=== PATIENT | male | born 1975 | race Two or more races ===

== ENCOUNTER 2024-01-14 16:20 | Inpatient (IN) | payer OTHER ==
[~2024-01-14] VITALS: Ht 185.4 cm; Wt 89.3 kg
[2024-01-14] MEDS: KETOROLAC TROMETHAMINE 30 MG/ML VIAL IVP ONE (18:45)
[2024-01-14] MEDS: ONDANSETRON HCL 4 MG/2 ML VIAL IVP ONE (18:45)
[2024-01-14] MEDS: SODIUM CHLORIDE 0.9% 1,000 ML IV ONE ×2 (18:45→21:58)
[2024-01-14 19:48] LABS: BASOPHILS % (AUTO) 0.5 % (0.0-2.0); EOSINOPHILS % (AUTO) 1.6 % (1.0-6.0); HEMATOCRIT 38.2 % (41-53); HEMOGLOBIN 12.6 g/dL (13.5-17.5); LYMPHOCYTES % (AUTO) 14.9 % (22.0-44.0); MEAN CORPUSCULAR HEMOGLOBIN 27.9 pg (26.0-34.0); MEAN CORPUSCULAR HGB CONC 33.1 G/dL (31.0-37.0); MEAN CORPUSCULAR VOLUME 84 fL (80-100); MONOCYTES # (AUTO) 1.2 K/uL (0.1-1.0); NEUTROPHILS # (AUTO) 10.1 K/uL (1.8-7.7); PLATELET COUNT (AUTO) 283 K/uL (150-450); RED BLOOD CELL COUNT(AUTO) 4.54 MIL/uL (4.50-5.90); RED CELL DISTRIBUTION WIDTH 13.9 % (11.5-14.5); WHITE BLOOD COUNT (AUTO) 13.6 K/uL (4.5-11.0)
[2024-01-14 19:56] LABS: TROPONIN I-HIGH SENSITIVITY Less Than 4 ng/L (<76)
[2024-01-14 19:58] LABS: B-TYPE NATRIURETIC PEPTIDE 22 pg/mL (0-100); ERYTHROCYTE SEDIMENTATION RATE 25 MM/HR (0-15)
[2024-01-14 19:59] LABS: ANION GAP 6 mmol/L (8-16); CALCIUM, TOTAL 9.6 mg/dL (8.8-10.5); CARBON DIOXIDE 31 mmol/L (22-29); CHLORIDE 101 mmol/L (98-107); CREATININE 0.89 mg/dL (0.60-1.30); GLOMERULAR FILTR. RATE CALC > 60 mL/min (>60); GLUCOSE,RANDOM 95 mg/dL (70-110); POTASSIUM 4.3 mmol/L (3.5-5.1); SODIUM SERUM 138 mmol/L (136-145); UREA NITROGEN, BLOOD 15 mg/dL (7-18)
[2024-01-14 21:47] LABS: LACTIC ACID 0.8 mmol/L (0.4-2.0)
[2024-01-14] MEDS: DOCUSATE SODIUM 100 MG CAPSULE PO SCH (21:57)
[2024-01-14] MEDS: IOHEXOL 9 MG/ML 500 ML BOTTLE PO ONE (21:57)
[2024-01-14] MEDS ORDERED: SODIUM CHLORIDE 0.9% 100 ML ONE (22:19)
[2024-01-14] MEDS ORDERED: IOHEXOL 350 MG/ML 100 ML VIAL ONE (22:19)
[2024-01-15 00:12] VITALS: BP 103/63; PULSE 70; RESP 19; TEMP 98.1
[2024-01-15] MEDS: HYDROmorphone HCL 2 MG/ML SYRINGE IVP ONE (00:48)
[2024-01-15] MEDS: CLINDAMYCIN 600 MG/D5% WATER 50 ML IV ONE (01:05)
[2024-01-15] MEDS: HEPARIN SODIUM,PORCINE 5,000 UNITS/ML VIAL SQ SCH (01:09)
[2024-01-15] MEDS: PIPERACILLIN/TAZO 3.375 GM/D5W 50 ML IV ONE (02:13)
[2024-01-15 04:26] VITALS: BP 118/67; PULSE 67; RESP 18; TEMP 97.7
[2024-01-15 05:48] LABS: APPEARANCE,URINE CLEAR (CLEAR); BILIRUBIN,URINE NEGATIVE (NEGATIVE); COLOR,URINE YELLOW (YELLOW); GLUCOSE, URINE (UA) NEGATIVE (NEGATIVE); LEUKOCYTE ESTERASE ,URINE NEGATIVE (NEGATIVE); NITRATE,URINE NEGATIVE (NEGATIVE); OCCULT BLOOD,URINE NEGATIVE (NEGATIVE); PH,URINE 6.5 (5.0-8.0); PH,URINE DRUG SCREEN 6.5 (5.0-8.0); PROTEIN,URINE TRACE mg/dL (NEGATIVE); UROBILINOGEN,URINE <=1.0 mg/dL (<=1.0)
[2024-01-15 05:54] LABS: ALCOHOL, URINE DRUG SCREEN NEGATIVE (NEGATIVE); AMPHET/METH SCREEN,URINE POSITIVE (NEGATIVE); BARBITURATE SCREEN, URINE NEGATIVE (NEGATIVE); BENZODIAZEPINES SCREEN,URINE NEGATIVE (NEGATIVE); CANNABINOID SCREEN,URINE NEGATIVE (NEGATIVE); COCAINE SCREEN,URINE NEGATIVE (NEGATIVE); METHADONE SCREEN, URINE NEGATIVE (NEGATIVE); OPIATE SCREEN,URINE POSITIVE (NEGATIVE); PHENCYCLIDINE SCREEN,URINE NEGATIVE (NEGATIVE)
[2024-01-15 05:55] LABS: RBC,URINE None Seen /HPF (0-2)
[2024-01-15 05:56] LABS: BACTERIA,URINE None Seen /HPF (None Seen); SQUAMOUS EPITHELIAL CELL,UR None Seen /LPF (None Seen); WBC,URINE None Seen /HPF (0-5)
[2024-01-15] MEDS: MORPHINE SULFATE 2 MG/ML SYRINGE IVP PRN (07:49)
[2024-01-15 08:27] VITALS: BP 113/71; PULSE 7; PULSE 76; RESP 20; TEMP 98.1
[2024-01-15] MEDS ORDERED: FAMOTIDINE 20 MG TABLET PO SCH (09:00)
[2024-01-15] MEDS: PANTOPRAZOLE SODIUM 40 MG/VIAL IVP SCH (09:05)
[2024-01-15] MEDS: SODIUM CHLORIDE 0.9% 1,000 ML IV ONE (09:11)
[2024-01-15] MEDS: PIPERACILLIN/TAZO 3.375 GM/D5W 50 ML IV SCH (09:16)
[2024-01-15] MEDS ORDERED: RINGERS SOLUTION,LACTATED 1,000 ML IV ONE (09:29)
[2024-01-15] MEDS: ETHYL ALCOHOL 62% ANTISEPTIC NASAL SANITIZER 0.6 ML AMPUL NASAL ONE (09:36)
[2024-01-15] MEDS: CHLORHEXIDINE GLUCONATE 2% TOWELETTE [2'S/6'S] TP ONE (09:36)
[2024-01-15] MEDS ORDERED: SODIUM CL IRRIG SOLN BAG 0 ML IRRIG ONE (11:02)
[2024-01-15] MEDS: RINGERS SOLUTION,LACTATED 1,000 ML IV ONE (11:15)
[2024-01-15] MEDS ORDERED: MetroNIDAZOLE 500 MG/NACL 100 ML IV ONE (11:57)
[2024-01-15] MEDS ORDERED: MIDAZOLAM HCL 2 MG/2 ML VIAL IVP ONE (12:00)
[2024-01-15] MEDS ORDERED: DEXAMETHASONE SOD PHOS 4 MG/ML VIAL IVP ONE (12:00)
[2024-01-15] MEDS ORDERED: MORPHINE SULFATE/PF 0.5 MG/ML 10 ML AMP IVP ONE (12:00)
[2024-01-15] MEDS ORDERED: ACETAMINOPHEN/ISO-OSM 1000 MG/100 ML BOTTLE IV ONE (12:00)
[2024-01-15] MEDS ORDERED: LIDOCAINE/PF 2% 5 ML VIAL SQ ONE (12:00)
[2024-01-15] MEDS ORDERED: KETOROLAC TROMETHAMINE 60 MG/2 ML VIAL IM ONE (12:00)
[2024-01-15] MEDS ORDERED: CeFAZolin SODIUM 1 GM VIAL IVP ONE (12:00)
[2024-01-15] MEDS ORDERED: FentaNYL CITRATE PF 100 MCG/2 ML VIAL IVP ONE (12:00)
[2024-01-15] MEDS ORDERED: HYDROmorphone HCL 2 MG/ML SYRINGE IVP PRN (12:15)
[2024-01-15] MEDS ORDERED: FentaNYL CITRATE PF 100 MCG/2 ML VIAL IVP PRN (12:15)
[2024-01-15] MEDS ORDERED: MEPERIDINE-PF 25 MG/ML VIAL IVP PRN (12:15)
[2024-01-15] MEDS: BUPIVACAINE 0.25%/EPI 1:200,000/PF 30 ML VIAL ONE (13:05)
[2024-01-15] MEDS: OxyCODONE HCL/ACETAMINOPHEN 5-325 MG TABLET PO PRN (15:35)
[2024-01-15] MEDS ORDERED: BUPIVACAINE 0.25%/EPI 1:200,000/PF 30 ML VIAL ONE (15:52)
[2024-01-15 20:11] VITALS: BP 95/61; PULSE 70; RESP 20; TEMP 97.5
[2024-01-15] MEDS: OXYGEN THERAPY IH SCH (20:51)
[2024-01-16 05:09] VITALS: BP 95/59; PULSE 45; RESP 18; TEMP 97.5
[2024-01-16 07:13] LABS: EOSINOPHILS % (AUTO) 0 % (1.0-6.0); HEMATOCRIT 38.8 % (41-53); HEMOGLOBIN 12.7 g/dL (13.5-17.5); LYMPHOCYTES # (AUTO) 0.9 K/uL (1.0-4.8); LYMPHOCYTES % (AUTO) 3.4 % (22.0-44.0); MEAN CORPUSCULAR HEMOGLOBIN 27.6 pg (26.0-34.0); MEAN CORPUSCULAR HGB CONC 32.8 G/dL (31.0-37.0); MEAN CORPUSCULAR VOLUME 84 fL (80-100); MONOCYTES # (AUTO) 0.6 K/uL (0.1-1.0); MONOCYTES % (AUTO) 2.1 % (2.0-9.0); NEUTROPHILS # (AUTO) 25.4 K/uL (1.8-7.7); PLATELET COUNT (AUTO) 303 K/uL (150-450); RED BLOOD CELL COUNT(AUTO) 4.62 MIL/uL (4.50-5.90); RED CELL DISTRIBUTION WIDTH 13.7 % (11.5-14.5); WHITE BLOOD COUNT (AUTO) 26.9 K/uL (4.5-11.0)
[2024-01-16 07:14] LABS: NEUTROPHILS % (AUTO) 94.5 % (40.0-70.0)
[2024-01-16 07:18] LABS: ANION GAP 10 mmol/L (8-16); CALCIUM, TOTAL 9.7 mg/dL (8.8-10.5); CARBON DIOXIDE 25 mmol/L (22-29); CHLORIDE 100 mmol/L (98-107); CREATININE 0.82 mg/dL (0.60-1.30); GLOMERULAR FILTR. RATE CALC > 60 mL/min (>60); GLUCOSE,RANDOM 150 mg/dL (70-110); POTASSIUM 4.4 mmol/L (3.5-5.1); SODIUM SERUM 135 mmol/L (136-145); UREA NITROGEN, BLOOD 21 mg/dL (7-18)
[2024-01-16 08:11] LABS: RBC MORPHOLOGY COMMENT NORMAL RBC MORPH
[2024-01-16 09:14] VITALS: BP 101/68; PULSE 42; RESP 18; TEMP 97.8
[2024-01-16 20:21] VITALS: BP 105/60; PULSE 51; RESP 19; TEMP 98.2
[2024-01-17 05:01] VITALS: BP 123/69; PULSE 52; RESP 18; TEMP 97.8
[2024-01-17 06:40] LABS: BASOPHILS % (AUTO) 0.5 % (0.0-2.0); EOSINOPHILS % (AUTO) 0.6 % (1.0-6.0); HEMATOCRIT 38.6 % (41-53); HEMOGLOBIN 12.7 g/dL (13.5-17.5); LYMPHOCYTES # (AUTO) 2.5 K/uL (1.0-4.8); LYMPHOCYTES % (AUTO) 16.9 % (22.0-44.0); MEAN CORPUSCULAR HEMOGLOBIN 27.9 pg (26.0-34.0); MEAN CORPUSCULAR HGB CONC 32.8 G/dL (31.0-37.0); MEAN CORPUSCULAR VOLUME 85 fL (80-100); MONOCYTES # (AUTO) 0.7 K/uL (0.1-1.0); NEUTROPHILS # (AUTO) 11.2 K/uL (1.8-7.7); PLATELET COUNT (AUTO) 250 K/uL (150-450); RED BLOOD CELL COUNT(AUTO) 4.54 MIL/uL (4.50-5.90); WHITE BLOOD COUNT (AUTO) 14.5 K/uL (4.5-11.0)
[2024-01-17 07:01] LABS: ANION GAP 7 mmol/L (8-16); CARBON DIOXIDE 29 mmol/L (22-29); CHLORIDE 105 mmol/L (98-107); CREATININE 0.79 mg/dL (0.60-1.30); GLOMERULAR FILTR. RATE CALC > 60 mL/min (>60); GLUCOSE,RANDOM 87 mg/dL (70-110); POTASSIUM 4.4 mmol/L (3.5-5.1); SODIUM SERUM 141 mmol/L (136-145); UREA NITROGEN, BLOOD 20 mg/dL (7-18)
[2024-01-17 08:24] VITALS: BP 102/59; PULSE 51; RESP 19; TEMP 97.7
[2024-01-17] MEDS ORDERED: BISACODYL 10 MG RECTAL RECTAL SUPPOSITORY PR SCH (13:30)
[2024-01-17] MEDS ORDERED: BISACODYL 10 MG RECTAL RECTAL SUPPOSITORY PR PRN (13:30)
[2024-01-17] MEDS: SODIUM PHOSPHATE,MONO-DIBASIC 133 ML ENEMA PR ONE (15:27)
[2024-01-17 19:26] VITALS: BP 116/74; PULSE 64; RESP 18; TEMP 98.6
[2024-01-17] MEDS: ZOLPIDEM TARTRATE 5 MG TABLET PO PRN (20:34)
[2024-01-17] MEDS: LIDOCAINE 5% TRANSDERMAL PATCH TD ONE (23:46)
[2024-01-18 03:30] VITALS: BP 102/58; PULSE 79; RESP 18; TEMP 98.4
[2024-01-18] MEDS: POLYETHYLENE GLYCOL 3350 17 GM PACKET PO SCH (07:55)
[2024-01-18 08:00] VITALS: BP 107/71; PULSE 59; RESP 18; TEMP 98.6
[2024-01-18] MEDS: MAGNESIUM HYDROXIDE SUSPENSION 30 ML UDCUP PO ONE (11:02)
[2024-01-18] MEDS: LIDOCAINE 5% TRANSDERMAL PATCH TD SCH (11:03)
[2024-01-18] MEDS ORDERED: SODIUM CHLORIDE 0.9% 500 ML IV ONE (16:34)
[2024-01-18 19:40] VITALS: BP 107/62; PULSE 54; RESP 18; TEMP 98
[2024-01-18] MEDS: LIDOCAINE 3% CREAM 28 GM TUBE TP SCH (21:00)
[2024-01-18] MEDS: -LIDODERM PATCH NOTE- MISC SCH (21:02)
[2024-01-19 06:57] LABS: HEMATOCRIT 37.8 % (41-53); HEMOGLOBIN 13.3 g/dL (13.5-17.5); MEAN CORPUSCULAR HEMOGLOBIN 29.6 pg (26.0-34.0); MEAN CORPUSCULAR HGB CONC 35.1 G/dL (31.0-37.0); MEAN CORPUSCULAR VOLUME 85 fL (80-100); RED BLOOD CELL COUNT(AUTO) 4.47 MIL/uL (4.50-5.90); RED CELL DISTRIBUTION WIDTH 13.5 % (11.5-14.5); WHITE BLOOD COUNT (AUTO) 11.6 K/uL (4.5-11.0)
[2024-01-19 07:08] LABS: ANION GAP 7 mmol/L (8-16); CALCIUM, TOTAL 9.8 mg/dL (8.8-10.5); CARBON DIOXIDE 27 mmol/L (22-29); CHLORIDE 101 mmol/L (98-107); CREATININE 0.69 mg/dL (0.60-1.30); GLOMERULAR FILTR. RATE CALC > 60 mL/min (>60); GLUCOSE,RANDOM 88 mg/dL (70-110); POTASSIUM 4.4 mmol/L (3.5-5.1); SODIUM SERUM 135 mmol/L (136-145); UREA NITROGEN, BLOOD 18 mg/dL (7-18)
[2024-01-19] MEDS: ONDANSETRON HCL 4 MG/2 ML VIAL IVP PRN (08:04)
[2024-01-19 08:34] VITALS: BP 107/66; PULSE 54; RESP 17; TEMP 97.9
[2024-01-19 08:50] LABS: BAND NEUTROPHILS % (MANUAL) 0 % (0-5); PLATELET COUNT (AUTO) 361 K/uL (150-450)
[2024-01-19 08:52] LABS: EOSINOPHILS % (MANUAL) 1 % (1-6); LYMPHOCYTES % (MANUAL) 27 % (22-44); MONOCYTES % (MANUAL) 9 % (2-9); SEGMENTED NEUTROPHILS % 63 % (40-70); TOTAL CELLS COUNTED 100
[2024-01-19 08:53] LABS: RBC MORPHOLOGY COMMENT NORMAL RBC MORPH
[2024-01-19] MEDS: LEVOFLOXACIN 500 MG TABLET PO SCH (09:31)
[2024-01-19] MEDS: ACETAMINOPHEN 325 MG TABLET PO PRN (09:31)
[2024-01-19] MEDS ORDERED: LEVO-72 PO (10:49)
[2024-01-19] MEDS ORDERED: ACET-2247 PO (10:53)
== END 2024-01-19 14:47 | DRG 398 ==
LOC: EMS 16:23 → EDH 20:50 → 6S 23:55
PROVIDERS: ADMIT Internal Medicine; ATTEND Internal Medicine
PROC: 0DTJ4ZZ Resection of Appendix, Percutaneous Endoscopic Approach (ICD-10-PCS; principal; 2024-01-15 11:30)
DX: K35.80 Unspecified acute appendicitis (principal); F15.23 Other stimulant dependence with withdrawal; R65.10 Systemic inflammatory response syndrome (SIRS) of non-infectious origin without acute organ dysfunction; K59.39 Other megacolon; M54.50 Low back pain, unspecified; G89.29 Other chronic pain; F19.10 Other psychoactive substance abuse, uncomplicated; F31.9 Bipolar disorder, unspecified; F41.1 Generalized anxiety disorder; F64.0 Transsexualism; K59.09 Other constipation; M48.061 Spinal stenosis, lumbar region without neurogenic claudication
CPT/HCPCS: 71045; 74177; 80048; 80307; 81001; 83605; 83735; 83880; 84484; 85025; 85651; 87040; 87077; 87205; 88304; 93005; 93306; 99285; C9113; G0378; J0131; J0690; J1100; J1170; J1644; J1885; J2250; J2270; J2274; J2405; J2543; J3010; J3490; J7030; J7040; J7050; J7120; Q9967; 36415-L1; 36415-TC

== ENCOUNTER 2024-06-22 15:57 | Inpatient (IN) | payer OTHER ==
[~2024-06-22] VITALS: Ht 182.9 cm; Wt 65.9 kg
[~2024-06-22 15:57] MED LIST: ACET-2247 PO; LEVO-72 PO
[2024-06-22] MEDS: SODIUM CHLORIDE 0.9% 1,000 ML IV ONE (18:42)
[2024-06-22] MEDS: KETOROLAC TROMETHAMINE 30 MG/ML VIAL IVP ONE (18:43)
[2024-06-22] MEDS: CeFAZolin 1 GM/DEXTROSE 50 ML IV ONE (18:55)
[2024-06-22 18:56] LABS: BASOPHILS % (AUTO) 0.8 % (0.0-2.0); EOSINOPHILS % (AUTO) 1.6 % (1.0-6.0); HEMATOCRIT 37.5 % (41-53); HEMOGLOBIN 12.7 g/dL (13.5-17.5); LYMPHOCYTES # (AUTO) 2.3 K/uL (1.0-4.8); LYMPHOCYTES % (AUTO) 21.3 % (22.0-44.0); MEAN CORPUSCULAR HEMOGLOBIN 27.7 pg (26.0-34.0); MEAN CORPUSCULAR HGB CONC 33.9 G/dL (31.0-37.0); MEAN CORPUSCULAR VOLUME 82 fL (80-100); MONOCYTES # (AUTO) 0.6 K/uL (0.1-1.0); MONOCYTES % (AUTO) 5.8 % (2.0-9.0); NEUTROPHILS # (AUTO) 7.5 K/uL (1.8-7.7); NEUTROPHILS % (AUTO) 70.5 % (40.0-70.0); PLATELET COUNT (AUTO) 341 K/uL (150-450); RED BLOOD CELL COUNT(AUTO) 4.58 MIL/uL (4.50-5.90); RED CELL DISTRIBUTION WIDTH 13.8 % (11.5-14.5); WHITE BLOOD COUNT (AUTO) 10.6 K/uL (4.5-11.0)
[2024-06-22] MEDS: ONDANSETRON HCL 4 MG/2 ML VIAL IVP ONE (18:59)
[2024-06-22 19:05] LABS: ANION GAP 7 mmol/L (8-16); CARBON DIOXIDE 27 mmol/L (22-29); CHLORIDE 100 mmol/L (98-107); CREATININE 0.88 mg/dL (0.60-1.30); GLOMERULAR FILTR. RATE CALC > 60 mL/min (>60); GLUCOSE,RANDOM 84 mg/dL (70-110); SODIUM SERUM 134 mmol/L (136-145); UREA NITROGEN, BLOOD 13 mg/dL (7-18)
[2024-06-22 19:11] LABS: ALANINE AMINOTRANSFERASE 18 U/L (12-78); ALBUMIN 3.2 g/dL (3.4-5.0); ALKALINE PHOSPHATASE 89 U/L (46-116); ASPARTATE AMINOTRANSFERASE 16 U/L (15-37); BILIRUBIN,TOTAL 0.6 mg/dL (0.1-1.0); LIPASE < 10 U/L (16-77); TOTAL PROTEIN, SERUM 8.1 g/dL (6.4-8.2)
[2024-06-22 19:13] LABS: LACTIC ACID 0.8 mmol/L (0.4-2.0)
[2024-06-22] MEDS ORDERED: MAGNESIUM HYDROXIDE SUSPENSION 30 ML UDCUP PO PRN (19:45)
[2024-06-22] MEDS ORDERED: ACETAMINOPHEN 325 MG TABLET PO PRN (19:45)
[2024-06-22] MEDS ORDERED: IOHEXOL 350 MG/ML 100 ML VIAL ONE (20:02)
[2024-06-22] MEDS ORDERED: SODIUM CHLORIDE 0.9% 100 ML ONE (20:02)
[2024-06-22] MEDS: VANCOMYCIN 1.25 GM/WATER(PEG) 250 ML IV ONE (20:53)
[2024-06-22] MEDS: DOCUSATE SODIUM 100 MG CAPSULE PO SCH (20:56)
[2024-06-23] MEDS: PIPERACILLIN/TAZO 3.375 GM/D5W 50 ML IV ONE (00:22)
[2024-06-23] MEDS: OxyCODONE HCL/ACETAMINOPHEN 5-325 MG TABLET PO PRN ×2 (00:25→07:55)
[2024-06-23 01:03] LABS: APPEARANCE,URINE CLEAR (CLEAR); BILIRUBIN,URINE NEGATIVE (NEGATIVE); COLOR,URINE LIGHT YELLOW (YELLOW); GLUCOSE, URINE (UA) NEGATIVE (NEGATIVE); KETONES,URINE TRACE mg/dL (NEGATIVE); LEUKOCYTE ESTERASE ,URINE NEGATIVE (NEGATIVE); NITRATE,URINE NEGATIVE (NEGATIVE); OCCULT BLOOD,URINE NEGATIVE (NEGATIVE); PH,URINE 6.5 (5.0-8.0); PH,URINE DRUG SCREEN 6.5 (5.0-8.0); PROTEIN,URINE NEGATIVE (NEGATIVE); SPECIFIC GRAVITIY, URINE 1.034 (1.003-1.030); UROBILINOGEN,URINE <=1.0 mg/dL (<=1.0)
[2024-06-23 01:11] LABS: ALCOHOL, URINE DRUG SCREEN NEGATIVE (NEGATIVE); AMPHET/METH SCREEN,URINE NEGATIVE (NEGATIVE); BARBITURATE SCREEN, URINE NEGATIVE (NEGATIVE); BENZODIAZEPINES SCREEN,URINE NEGATIVE (NEGATIVE); CANNABINOID SCREEN,URINE NEGATIVE (NEGATIVE); COCAINE SCREEN,URINE NEGATIVE (NEGATIVE); METHADONE SCREEN, URINE NEGATIVE (NEGATIVE); OPIATE SCREEN,URINE NEGATIVE (NEGATIVE); PHENCYCLIDINE SCREEN,URINE NEGATIVE (NEGATIVE)
[2024-06-23] MEDS: MORPHINE SULFATE 2 MG/ML SYRINGE IVP PRN (01:44)
[2024-06-23 02:30] VITALS: BP 113/70; PULSE 70; RESP 18; TEMP 98.1; O2SAT 98
[2024-06-23] MEDS: VANCOMYCIN 500 MG/WATER(PEG) 100 ML IV ONE (02:46)
[2024-06-23] MEDS ORDERED: SODIUM CHLORIDE 0.9% 500 ML IV ONE (02:46)
[2024-06-23] MEDS: CeFAZolin 2 GM/DEXTROSE 50 ML IV SCH (05:55)
[2024-06-23] MEDS: FAMOTIDINE 20 MG TABLET PO SCH (07:55)
[2024-06-23] MEDS: VANCOMYCIN 1GM/WATER(PEG/NADA) 200 ML IV SCH (08:15)
[2024-06-23 08:17] VITALS: BP 115/72; PULSE 65; RESP 18; TEMP 97.5; O2SAT 96
[2024-06-23 08:51] LABS: ANION GAP 10 mmol/L (8-16); CALCIUM, TOTAL 8.5 mg/dL (8.8-10.5); CARBON DIOXIDE 25 mmol/L (22-29); CHLORIDE 101 mmol/L (98-107); CREATININE 0.93 mg/dL (0.60-1.30); GLOMERULAR FILTR. RATE CALC > 60 mL/min (>60); GLUCOSE,RANDOM 69 mg/dL (70-110); POTASSIUM 4.7 mmol/L (3.5-5.1); SODIUM SERUM 136 mmol/L (136-145); UREA NITROGEN, BLOOD 16 mg/dL (7-18)
[2024-06-23] MEDS ORDERED: GADOTERATE MEGLUMINE 10 MMOL/20 ML VIAL IVP ONE (15:24)
[2024-06-23 19:43] VITALS: BP 104/50; PULSE 52; RESP 19; TEMP 98.1; O2SAT 96
[2024-06-23] MEDS: ZOLPIDEM TARTRATE 5 MG TABLET PO PRN (22:41)
[2024-06-24 04:37] VITALS: BP 96/61; PULSE 66; RESP 18; TEMP 98.4; O2SAT 97
[2024-06-24 07:25] LABS: ANION GAP 10 mmol/L (8-16); CALCIUM, TOTAL 8.6 mg/dL (8.8-10.5); CARBON DIOXIDE 25 mmol/L (22-29); CHLORIDE 102 mmol/L (98-107); CREATININE 0.77 mg/dL (0.60-1.30); GLOMERULAR FILTR. RATE CALC > 60 mL/min (>60); GLUCOSE,RANDOM 90 mg/dL (70-110); POTASSIUM 4.2 mmol/L (3.5-5.1); SODIUM SERUM 137 mmol/L (136-145); UREA NITROGEN, BLOOD 13 mg/dL (7-18)
[2024-06-24 07:37] LABS: VANCOMYCIN,RANDOM 16.1 mcg/mL (25.0-50.0)
[2024-06-24 08:31] VITALS: BP 95/60; PULSE 58; RESP 19; TEMP 98.4; O2SAT 97
[2024-06-24] MEDS ORDERED: IOHEXOL 350 MG/ML 100 ML VIAL ONE (15:46)
[2024-06-24] MEDS ORDERED: SODIUM CHLORIDE 0.9% 100 ML ONE (15:46)
[2024-06-24 20:07] VITALS: BP 113/67; PULSE 62; RESP 18; TEMP 98.2; O2SAT 96
[2024-06-25 03:07] VITALS: BP 111/65; PULSE 61; RESP 18; TEMP 97.9; O2SAT 96
[2024-06-25] MEDS: CHLORHEXIDINE GLUCONATE 2% TOWELETTE [2'S/6'S] TP ONE (05:23)
[2024-06-25] MEDS: ETHYL ALCOHOL 62% ANTISEPTIC NASAL SANITIZER 0.6 ML AMPUL NASAL ONE (05:23)
[2024-06-25] MEDS ORDERED: FentaNYL CITRATE PF 100 MCG/2 ML VIAL ONE ×2 (05:52→08:17)
[2024-06-25] MEDS ORDERED: PROPOFOL 1% 20 ML VIAL IVP ONE (05:52)
[2024-06-25] MEDS ORDERED: KETOROLAC TROMETHAMINE 60 MG/2 ML VIAL IM ONE (05:52)
[2024-06-25] MEDS ORDERED: MIDAZOLAM HCL 2 MG/2 ML VIAL ONE (05:52)
[2024-06-25] MEDS ORDERED: SUGAMMADEX SODIUM 200 MG/2 ML VIAL IVP ONE (05:52)
[2024-06-25] MEDS ORDERED: ROCURONIUM BROMIDE 10 MG/ML 5 ML VIAL ONE (05:52)
[2024-06-25] MEDS ORDERED: ONDANSETRON HCL 4 MG/2 ML VIAL ONE (05:52)
[2024-06-25] MEDS ORDERED: DEXAMETHASONE SOD PHOS 4 MG/ML VIAL ONE (05:52)
[2024-06-25] MEDS ORDERED: LIDOCAINE/PF 2% 5 ML VIAL ONE (05:52)
[2024-06-25] MEDS: RINGERS SOLUTION,LACTATED 500 ML IV ONE (06:10)
[2024-06-25] MEDS ORDERED: RINGERS SOLUTION,LACTATED 1,000 ML IV ONE (06:48)
[2024-06-25] MEDS ORDERED: CeFAZolin SODIUM 1 GM VIAL ONE (07:09)
[2024-06-25] MEDS ORDERED: BUPIVACAINE 0.25%/EPI 1:200,000/PF 30 ML VIAL ONE (07:09)
[2024-06-25] MEDS ORDERED: SODIUM CHLORIDE 0.9% 0 ML ONE (07:10)
[2024-06-25] MEDS ORDERED: SODIUM CL IRRIG SOLN BAG 0 ML IRRIG ONE (07:10)
[2024-06-25 07:39] LABS: ANION GAP 10 mmol/L (8-16); CALCIUM, TOTAL 8.8 mg/dL (8.8-10.5); CARBON DIOXIDE 25 mmol/L (22-29); CHLORIDE 102 mmol/L (98-107); CREATININE 0.79 mg/dL (0.60-1.30); GLOMERULAR FILTR. RATE CALC > 60 mL/min (>60); GLUCOSE,RANDOM 106 mg/dL (70-110); POTASSIUM 3.7 mmol/L (3.5-5.1); SODIUM SERUM 137 mmol/L (136-145); UREA NITROGEN, BLOOD 13 mg/dL (7-18)
[2024-06-25] MEDS: HYDROGEN PEROXIDE 473 ML SOLUTION ONE (07:45)
[2024-06-25] MEDS: OXYGEN THERAPY IH SCH (08:00)
[2024-06-25] MEDS ORDERED: HYDROmorphone HCL 2 MG/ML SYRINGE IVP PRN (08:00)
[2024-06-25] MEDS: FentaNYL CITRATE PF 100 MCG/2 ML VIAL IVP PRN (08:19)
[2024-06-25] MEDS ORDERED: HYDROmorphone HCL 2 MG/ML SYRINGE ONE (08:27)
[2024-06-25] MEDS: HYDROmorphone HCL 2 MG/ML SYRINGE IVP ONE (08:37)
[2024-06-25 10:33] VITALS: BP 98/60; PULSE 80; RESP 19; TEMP 97.4; O2SAT 96
[2024-06-25 19:45] VITALS: BP 107/60; PULSE 67; RESP 20; TEMP 98.1; O2SAT 97
[2024-06-26 04:37] VITALS: BP 108/58; PULSE 54; RESP 18; TEMP 97.8; O2SAT 96
[2024-06-26 08:13] LABS: ANION GAP 11 mmol/L (8-16); CALCIUM, TOTAL 9.3 mg/dL (8.8-10.5); CARBON DIOXIDE 24 mmol/L (22-29); CHLORIDE 105 mmol/L (98-107); CREATININE 0.65 mg/dL (0.60-1.30); GLOMERULAR FILTR. RATE CALC > 60 mL/min (>60); GLUCOSE,RANDOM 107 mg/dL (70-110); POTASSIUM 3.9 mmol/L (3.5-5.1); SODIUM SERUM 140 mmol/L (136-145); UREA NITROGEN, BLOOD 16 mg/dL (7-18)
[2024-06-26 08:30] VITALS: BP 100/62; PULSE 55; RESP 18; TEMP 97.6; O2SAT 96
[2024-06-26] MEDS: BUPRENORPHINE HCL/NALOXONE HCL 8-2 MG SUBLINGUAL TABLET SL SCH (12:31)
[2024-06-26] MEDS: ONDANSETRON HCL 4 MG/2 ML VIAL IVP PRN (15:05)
[2024-06-26 20:02] VITALS: BP 107/65; PULSE 75; RESP 18; TEMP 97.8; O2SAT 96
[2024-06-27 05:24] VITALS: BP 102/54; PULSE 54; RESP 18; TEMP 97.8; O2SAT 100
[2024-06-27 06:20] LABS: ANION GAP 8 mmol/L (8-16); CALCIUM, TOTAL 8.9 mg/dL (8.8-10.5); CARBON DIOXIDE 27 mmol/L (22-29); CHLORIDE 104 mmol/L (98-107); CREATININE 0.77 mg/dL (0.60-1.30); GLOMERULAR FILTR. RATE CALC > 60 mL/min (>60); GLUCOSE,RANDOM 90 mg/dL (70-110); SODIUM SERUM 139 mmol/L (136-145); UREA NITROGEN, BLOOD 17 mg/dL (7-18); VANCOMYCIN,RANDOM 24.3 mcg/mL (25.0-50.0)
[2024-06-27 08:50] VITALS: BP 105/68; PULSE 53; RESP 18; TEMP 97.7; O2SAT 98
[2024-06-27 12:00] VITALS: BP 128/82; PULSE 80
[2024-06-27 16:00] VITALS: BP 102/58; PULSE 57; RESP 18; TEMP 97.8; O2SAT 96
[2024-06-27 19:44] VITALS: BP 152/51; PULSE 57; RESP 18; TEMP 97.8
[2024-06-27] MEDS: VANCOMYCIN 1.25 GM/WATER(PEG) 250 ML IV SCH (20:06)
[2024-06-28 04:41] VITALS: BP 111/54; PULSE 57; RESP 18; TEMP 98.1; O2SAT 96
[2024-06-28 08:15] VITALS: BP 102/63; PULSE 71; RESP 18; TEMP 98.3; O2SAT 99
[2024-06-28 08:20] LABS: ANION GAP 6 mmol/L (8-16); CALCIUM, TOTAL 9.1 mg/dL (8.8-10.5); CARBON DIOXIDE 28 mmol/L (22-29); CHLORIDE 101 mmol/L (98-107); CREATININE 0.81 mg/dL (0.60-1.30); GLOMERULAR FILTR. RATE CALC > 60 mL/min (>60); GLUCOSE,RANDOM 95 mg/dL (70-110); POTASSIUM 4.1 mmol/L (3.5-5.1); SODIUM SERUM 135 mmol/L (136-145); UREA NITROGEN, BLOOD 20 mg/dL (7-18)
[2024-06-28 20:00] VITALS: BP_SYST 112; BP_SYST 116; BP_DIAS 69; BP_DIAS 76; PULSE 53; PULSE 59; RESP 16; RESP 18; TEMP 97.7; TEMP 98.2; O2SAT 95; O2SAT 96
[2024-06-28] MEDS ORDERED: SODIUM CHLORIDE 0.9% 500 ML IV ONE (20:20)
[2024-06-29 03:00] VITALS: BP 116/76; PULSE 53; RESP 16; TEMP 97.7; O2SAT 96
[2024-06-29 07:54] LABS: ANION GAP 7 mmol/L (8-16); CALCIUM, TOTAL 9.1 mg/dL (8.8-10.5); CARBON DIOXIDE 29 mmol/L (22-29); CHLORIDE 102 mmol/L (98-107); CREATININE 0.77 mg/dL (0.60-1.30); GLOMERULAR FILTR. RATE CALC > 60 mL/min (>60); GLUCOSE,RANDOM 89 mg/dL (70-110); POTASSIUM 4.2 mmol/L (3.5-5.1); SODIUM SERUM 138 mmol/L (136-145); UREA NITROGEN, BLOOD 21 mg/dL (7-18); VANCOMYCIN,RANDOM 15.5 mcg/mL (25.0-50.0)
[2024-06-29 08:00] VITALS: RESP 18
[2024-06-29 14:08] VITALS: BP 121/73; PULSE 71; RESP 18; TEMP 97.5; O2SAT 95
[2024-06-29 17:33] VITALS: RESP 18
[2024-06-29 19:35] VITALS: BP 130/88; PULSE 62; RESP 18; TEMP 98.1; O2SAT 96
[2024-06-30 04:25] VITALS: BP 102/62; PULSE 58; RESP 16; TEMP 97.7; O2SAT 96
[2024-06-30 07:02] LABS: BASOPHILS % (AUTO) 2.3 % (0.0-2.0); EOSINOPHILS % (AUTO) 7.5 % (1.0-6.0); HEMATOCRIT 37.6 % (41-53); HEMOGLOBIN 12.8 g/dL (13.5-17.5); LYMPHOCYTES % (AUTO) 38.9 % (22.0-44.0); MEAN CORPUSCULAR HGB CONC 34.1 G/dL (31.0-37.0); MEAN CORPUSCULAR VOLUME 82 fL (80-100); MONOCYTES # (AUTO) 0.4 K/uL (0.1-1.0); MONOCYTES % (AUTO) 8.2 % (2.0-9.0); NEUTROPHILS # (AUTO) 2.3 K/uL (1.8-7.7); NEUTROPHILS % (AUTO) 43.1 % (40.0-70.0); PLATELET COUNT (AUTO) 434 K/uL (150-450); RED BLOOD CELL COUNT(AUTO) 4.59 MIL/uL (4.50-5.90); RED CELL DISTRIBUTION WIDTH 14.2 % (11.5-14.5); WHITE BLOOD COUNT (AUTO) 5.2 K/uL (4.5-11.0)
[2024-06-30 09:23] VITALS: BP 111/64; PULSE 53; RESP 18; TEMP 98.1; O2SAT 97
[2024-06-30] MEDS ORDERED: BUPR1TAB45 SL (11:45)
[2024-06-30] MEDS ORDERED: AMOX-457 PO (11:46)
== END 2024-06-30 13:50 | DRG 603 ==
LOC: EMS 15:57 → EDH 21:17 → 6S 06-23 02:33
PROVIDERS: ADMIT Internal Medicine; ATTEND Internal Medicine
PROC: 0J9H0ZZ Drainage of Left Lower Arm Subcutaneous Tissue and Fascia, Open Approach (ICD-10-PCS; principal; 2024-06-25 07:30)
DX: L03.114 Cellulitis of left upper limb (principal); M60.001 Infective myositis, unspecified left arm; L02.414 Cutaneous abscess of left upper limb; F19.10 Other psychoactive substance abuse, uncomplicated; F11.90 Opioid use, unspecified, uncomplicated
CPT/HCPCS: 36245; 36569; 73201; 76937; 80048; 80076; 80202; 80307; 81003; 83605; 83690; 85025; 87040; 87070; 87101; 87205; 93005; 99285; G0378; J0690; J1100; J1171; J1885; J2250; J2270; J2405; J2543; J2704; J3010; J3490; J7030; J7040; J7050; J7120; 36415-L1; 36415-TC; Z7610